=== PATIENT | male | born 1980 | race Caucasian/White ===

== ENCOUNTER 2016-09-06 21:54 | Observation (INO) ==
[2016-09-06] MEDS ORDERED: Ibuprofen 600 MG TABLET PO ONE (23:22)
[2016-09-06 23:24] LABS: Bilirubin,Urine Negative (Negative); Blood,Urine Negative (Negative); Clarity,Urine Clear (Clear); Color,Urine Yellow (Yellow); Glucose,Urine (UA) Normal (Normal); Ketones,Urine Negative (Negative); Leukocyte Esterase,Urine Negative (Negative); Nitrite,Urine Negative (Negative); Protein,Urine Negative (Neg-Trace); Specific Gravity,Urine 1.012 (1.010-1.025); Urobilinogen,Urine Normal (Normal)
[2016-09-06 23:31] LABS: Amphetamine Screen,Urine Negative ng/mL (Cutoff=1000); Barbiturate Screen,Urine Negative ng/mL (Cutoff=200); Benzodiazepines Screen,Urine Negative ng/mL (Cutoff=200); Cannabinoid Screen,Urine Negative ng/mL (Cutoff = 50); Cocaine Screen,Urine Negative ng/mL (Cutoff= 300); Opiate Screen,Urine Negative ng/mL (Cutoff=300); Phencyclidine Screen,Urine Negative ng/mL (Cutoff=25)
[2016-09-07 00:22] LABS: Basophils % 0.4 %; Hemoglobin 16.1 g/dL (12.9-16.9); Immature Granulocytes % 0.3 % (0-4); Lymphocytes # 2.9 K/mcL (0.6-4.6); Lymphocytes % 37.1 %; Mean Corpuscular HGB Conc 34.3 g/dL (31.6-35.5); Mean Corpuscular Hemoglobin 31.2 pg (28.0-33.3); Mean Corpuscular Volume 91.1 fL (83.0-100.0); Mean Platelet Volume 11.8 fL (9.4-12.4); Monocytes # 0.5 K/mcL (0.0-1.3); Monocytes % 6.9 %; Neutrophils # 4.4 K/mcL (1.6-8.9); Platelet Count 185 K/mcL (140-400); Red Blood Count 5.16 M/mcL (4.19-5.50); Red Cell Distribution Width 12.2 % (11.5-14.5); Segmented Neutrophils % 55.3 %
[2016-09-07 00:38] LABS: Alanine Aminotransferase 23 Units/L (0-55); Albumin 4.1 g/dL (3.5-5.0); Albumin/Globulin Ratio 1.2 (1.1-2.2); Alkaline Phosphatase 97 Units/L (38-126); Aspartate Amino Transferase 19 Units/L (5-34); BUN/Creatinine Ratio 14 (6-26); Bilirubin,Direct 0.1 mg/dL (0.0-0.5); Bilirubin,Indirect 0.3 mg/dL (0.0-1.2); Bilirubin,Total 0.4 mg/dL (0.2-1.2); Blood Urea Nitrogen 11 mg/dL (8-26); Calcium 10.1 mg/dL (8.6-10.8); Carbon Dioxide 26 mEq/L (19-29); Chloride 108 mEq/L (98-109); Globulin 3.3 g/dL (2.4-3.5); Glucose 87 mg/dL (70-99); Osmolality,Calculated 297 (280-300); Potassium 3.5 mEq/L (3.5-4.5); Sodium 144 mEq/L (136-145); Total Protein 7.4 g/dL (6.0-8.3); eGFR For African Americans > 60 (> 60); eGFR For Non-African Americans > 60 (> 60)
[2016-09-07 01:00] LABS: Acetaminophen < 1.0 mcg/mL (10-30); Ethanol < 10 mg/dL (0-10); Salicylate < 5.0 mg/dL (15-30)
--- NOTE | 2016-09-07 02:14 | Emergency Department Note ---
Overdose - Lab Data Lab results reviewed: Yes I reviewed the patient's lab results. Result diagrams: 09/07/16 00:15 09/07/16 00:15 Lab Results 09/06/16 09/06/16 09/07/16 Range/Units 22:08 22:08 00:15 WBC 7.9 (4.3-11.1) K/mcL RBC 5.16 (4.19-5.50) M/mcL Hgb 16.1 (12.9-16.9) g/dL Hct 47.0 (37.5-50.1) % MCV 91.1 (83.0-100.0) fL MCH 31.2 (28.0-33.3) pg MCHC 34.3 (31.6-35.5) g/dL RDW 12.2 (11.5-14.5) % Plt Count 185 (140-400) K/mcL MPV 11.8 (9.4-12.4) fL Immature Gran % 0.3 (0-4) % Seg Neutrophils % 55.3 % Lymphocytes % 37.1 % Monocytes % 6.9 % Eosinophils % 0.0 % Basophils % 0.4 % Neutrophils # 4.4 (1.6-8.9) K/mcL Lymphocytes # 2.9 (0.6-4.6) K/mcL Monocytes # 0.5 (0.0-1.3) K/mcL Eosinophils # 0.0 (0.0-0.6) K/mcL Basophils # 0.0 (0.0-0.2) K/mcL Sodium (136-145) mEq/L Potassium (3.5-4.5) mEq/L Chloride (98-109) mEq/L Carbon Dioxide (19-29) mEq/L BUN (8-26) mg/dL Creatinine (0.72-1.25) mg/dL Est GFR ( Amer) (> 60) Est GFR (Non-Af Amer) (> 60) BUN/Creatinine Ratio (6-26) Glucose (70-99) mg/dL Calculated Osmolality (280-300) Calcium (8.6-10.8) mg/dL Total Bilirubin (0.2-1.2) mg/dL Direct Bilirubin (0.0-0.5) mg/dL Indirect Bilirubin (0.0-1.2) mg/dL AST (5-34) Units/L ALT (0-55) Units/L Alkaline Phosphatase (38-126) Units/L Serum Total Protein (6.0-8.3) g/dL Albumin (3.5-5.0) g/dL Globulin (2.4-3.5) g/dL Albumin/Globulin Ratio (1.1-2.2) Urine Color Yellow (Yellow) Urine Clarity Clear (Clear) Urine pH 7.0 (5.0-8.0) pH Units Ur Specific [place] 1.012 (1.010-1.025) Urine Protein Negative (Neg-Trace) mg/dL Urine Glucose (UA) Normal (Normal) mg/dL Urine Ketones Negative (Negative) mg/dL Urine Blood Negative (Negative) Urine Nitrite Negative (Negative) Urine Bilirubin Negative (Negative) Urine Urobilinogen Normal (Normal) mg/dL Ur Leukocyte Esterase Negative (Negative) Salicylates (15-30) mg/dL Urine Opiates Screen Negative (Qjhfna=989) ng/mL Acetaminophen (10-30) mcg/mL Ur Barbiturates Screen Negative (Sqrmso=809) ng/mL Ur Phencyclidine Scrn Negative (Cutoff=25) ng/mL Ur Amphetamines Screen Negative (Daylmb=1620) ng/mL U Benzodiazepines Scrn Negative (Cngnsc=627) ng/mL Urine Cocaine Screen Negative (Cutoff= 300) ng/mL U Marijuana (THC) Screen Negative (Cutoff = 50) ng/mL Ethyl Alcohol (0-10) mg/dL 09/07/16 Range/Units 00:15 WBC (4.3-11.1) K/mcL RBC (4.19-5.50) M/mcL Hgb (12.9-16.9) g/dL Hct (37.5-50.1) % MCV (83.0-100.0) fL MCH (28.0-33.3) pg MCHC (31.6-35.5) g/dL RDW (11.5-14.5) % Plt Count (140-400) K/mcL MPV (9.4-12.4) fL Immature Gran % (0-4) % Seg Neutrophils % % Lymphocytes % % Monocytes % % Eosinophils % % Basophils % % Neutrophils # (1.6-8.9) K/mcL Lymphocytes # (0.6-4.6) K/mcL Monocytes # (0.0-1.3) K/mcL Eosinophils # (0.0-0.6) K/mcL Basophils # (0.0-0.2) K/mcL Sodium 144 (136-145) mEq/L Potassium 3.5 (3.5-4.5) mEq/L Chloride 108 (98-109) mEq/L Carbon Dioxide 26 (19-29) mEq/L BUN 11 (8-26) mg/dL Creatinine 0.81 (0.72-1.25) mg/dL Est GFR ( Amer) > 60 (> 60) Est GFR (Non-Af Amer) > 60 (> 60) BUN/Creatinine Ratio 14 (6-26) Glucose 87 (70-99) mg/dL Calculated Osmolality 297 (280-300) Calcium 10.1 (8.6-10.8) mg/dL Total Bilirubin 0.4 (0.2-1.2) mg/dL Direct Bilirubin 0.1 (0.0-0.5) mg/dL Indirect Bilirubin 0.3 (0.0-1.2) mg/dL AST 19 (5-34) Units/L ALT 23 (0-55) Units/L Alkaline Phosphatase 97 (38-126) Units/L Serum Total Protein 7.4 (6.0-8.3) g/dL Albumin 4.1 (3.5-5.0) g/dL Globulin 3.3 (2.4-3.5) g/dL Albumin/Globulin Ratio 1.2 (1.1-2.2) Urine Color (Yellow) Urine Clarity (Clear) Urine pH (5.0-8.0) pH Units Ur Specific [place] (1.010-1.025) Urine Protein (Neg-Trace) mg/dL Urine Glucose (UA) (Normal) mg/dL Urine Ketones (Negative) mg/dL Urine Blood (Negative) Urine Nitrite (Negative) Urine Bilirubin (Negative) Urine Urobilinogen (Normal) mg/dL Ur Leukocyte Esterase (Negative) Salicylates < 5.0 L (15-30) mg/dL Urine Opiates Screen (Ezabbl=942) ng/mL Acetaminophen < 1.0 L (10-30) mcg/mL Ur Barbiturates Screen (Vxbkyt=838) ng/mL Ur Phencyclidine Scrn (Cutoff=25) ng/mL Ur Amphetamines Screen (Vgtnvy=4201) ng/mL U Benzodiazepines Scrn (Cdupmq=098) ng/mL Urine Cocaine Screen (Cutoff= 300) ng/mL U Marijuana (THC) Screen (Cutoff = 50) ng/mL Ethyl Alcohol < 10 (0-10) mg/dL Overdose HPI - General Chief Complaint: ED Overdose Stated Complaint: Overdose Time Seen by Provider: 09/06/16 23:17 Source: EMS Mode of arrival: private vehicle Limitations: no limitations Nursing Notes Reviewed: Yes Vital Signs Reviewed: Yes - History of Present Illness HPI Narrative: Patient presents to the emergency department after an overdose on #30 lisinopril /hydrochlorothiazide 20/25mg. Patient denies any specific suicidal ideation, however states "I just cannot take it on a more." He denies any current chest pain, shortness of breath, dizziness or lightheadedness. He denies any recent illnesses, fever, chills, nausea or vomiting. Patient denies any chest pain, shortness of breath, dizziness, lightheadedness. Patient states that he took the medication because he was "tired of it all." Patient stated this in reference to his chronic back pain. Pt Subjective Complaint: intentional overdose Onset (ago): Just D[employer] WORK[employer] Time of Ingestion: 22:00 Intent: unknown How Overdose Was Discovered: called 911 Associated symptoms: depression Treatments Prior to Arrival: none - Related Data Home Medications Medication Instructions Recorded Confirmed Lisinopril/Hydrochlorothiazide 20 - 25 mg PO DAILY 11/23/14 03/07/16 [Zestoretic 20-25 mg Tablet] Oxycodone HCl/Acetaminophen 1 tab PO Q6H PRN 03/07/16 03/07/16 [Percocet 7.5-325 mg Tablet] Previous Rx's Medication Instructions Recorded Gabapentin [Neurontin] 200 mg PO TID #15 capsule 03/07/16 Methocarbamol [Robaxin-750] 750 mg PO TID #21 tablet 03/07/16 Allergies Allergy/AdvReac Type Severity Reaction Status Date / Time Iodinated Contrast- Oral and Allergy Anaphylaxis Verified 09/11/15 20:47 IV Dye [Iodinated Contrast Media - IV Dye] tramadol [From Ultram] Allergy Seizure Verified 09/11/15 20:47 All systems ED: reviewed and negative except as stated. Constitutional: Denies: fever, chills Cardiovascular: Denies: chest pain, palpitations Respiratory: Denies: cough, dyspnea Gastrointestinal: Denies: abdominal pain, nausea, vomiting Musculoskeletal: Denies: back pain, neck pain Integumentary: Denies: rash, abrasion, lesions Neurological: Denies: headache Psychiatric: Reports: depression, suicidal thoughts. Denies: anxiety, homicidal thoughts Endocrine: Denies: fatigue Past Medical History - Past Medical History Attestation: Yes The following information was validated with the patient. Source: patient, nursing notes reviewed Medical history: Reports: hypertension, kidney stones, other Surgical history: Reports: herniorrhaphy Psychiatric history: Reports: anxiety, previous psychiatric hospitalization - Social History Smoking Status: Current every day smoker Smokeless Tobacco Status: No Alcohol use: Reports: none Drug use: Reports: none, prescription drug abuse Physical Exam - General Limitations: no limitations General appearance: alert, in no apparent distress - Head Head exam: atraumatic, normocephalic - Eye Eye exam: Present: normal appearance, PERRL - ENT ENT exam: normal exam, normal oropharynx, mucous membranes moist - Neck Neck exam: Present: normal inspection, full ROM, trachea midline - Chest Chest inspection: Present: normal inspection, symmetric chest wall rise - Respiratory Respiratory exam: Present: normal lung sounds bilaterally. Absent: respiratory distress - Cardiovascular Cardiovascular exam: Present: regular rate, normal rhythm, normal heart sounds - Abdominal Exam Abdominal exam: Present: soft, Non-Tender, normal bowel sounds - Extremities Exam Extremities exam: Present: normal inspection, full ROM. Absent: tenderness, pedal edema - Expanded Lower Extremity Exam Gait: observed and normal - Back Exam Back exam: Present: normal inspection, full ROM. Absent: tenderness - Neurological Exam Neurological exam: Present: alert, oriented X3 - Psychiatric Psychiatric exam: Present: flat affect - Skin Skin exam: Present: warm, dry, intact, normal color Course Course Narrative: I spoke with the hospitalist, Dr. Ortiz. Patient will be admitted for observation and possible psychiatric 1A evaluation. Current vitals stable. No hypotension. Vital Signs Temperature 98.6 F 09/06/16 21:56 Pulse Rate 100 09/06/16 21:56 Respiratory Rate 20 09/06/16 21:56 Blood Pressure 156/118 09/06/16 21:56 O2 Sat by Pulse Oximetry 96 09/06/16 21:56 Temperature 98.6 F 09/06/16 21:56 Pulse Rate 73 09/07/16 01:32 Respiratory Rate 16 09/07/16 01:32 Blood Pressure 117/84 09/07/16 01:32 O2 Sat by Pulse Oximetry 93 09/07/16 01:32 Oxygen Delivery Oxygen Delivery Room Air Disposition Clinical Impression: Drug overdose Disposition: Admitted As Inpatient Condition: Fair Instructions: Adult Overdose (ED) Referrals: Yokasta Negro CNP [Primary Care Provider] - Forms: ED Satisfaction Letter Time of Disposition: 02:24
[2016-09-07] MEDS ORDERED: 0.9 % Sodium Chloride 1,000 ML IVC ONE (02:20)
[2016-09-07] MEDS ORDERED: Acetaminophen 325 MG TABLET PO PRN (02:44)
[2016-09-07] MEDS ORDERED: Naloxone 0.4 MG/ML INJ IVP PRN (02:44)
[2016-09-07] MEDS ORDERED: Ondansetron 4 MG/2 ML VIAL IVP PRN (02:44)
[2016-09-07] MEDS ORDERED: 0.9 % Sodium Chloride 1,000 ML IVC SCH (02:45)
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
--- NOTE | 2016-09-07 03:18 | Emergency Department Note ---
Attestation Statement - Attestation Attestation: I, Donald Patel MD, personally evaluated this patient and discussed their management with the midlevel provicer, PAC/[employer]ENER. I reviewed the midlevel provider 's note and agree with the documented findings, medical decision making, and plan of care. 35-year-old male presents to the emergency department with an intentional overdose of his blood pressure medication. Patient states he took an entire full bottle. He admits he was trying to hurt himself. On examination patient is a well-developed obese male in no acute distress. He is alert and oriented 3. There is no cyanosis or diaphoresis. Breath sounds are clear and equal bilaterally. Heart regular rate and rhythm. Abdomen is soft and nontender with normal bowel sounds. Labs reviewed. No acute changes on EKG. The hospitalist, Dr. Ortiz, was consulted and accepted admission of the patient.
[2016-09-07] MEDS ORDERED: Famotidine 20 MG/2 ML VIAL IVP SCH (06:00)
[2016-09-07] MEDS ORDERED: *HR* Heparin 5,000 UNIT/ML VIAL SQ SCH (06:00)
[2016-09-07] MEDS ORDERED: Nicotine 21 MG PATCH.TD24 TD SCH (09:00)
[2016-09-07 10:28] VITALS: BP 117/78
--- NOTE | 2016-09-07 12:04 | Consult Note ---
Date of Encounter: 09/07/16 Time of Encounter: 12:05 Assessment & Recommendation (1) MDD (major depressive disorder), recurrent severe, without psychosis Current visit: Yes Status: Acute Assessment & Recommendation: Patient is seen and interviewed after reviewing the symptoms diagnosis and treatment plan and explaining the risks benefits and side effects of treatment and consequences of no treatment and getting an informed consent from the patient antony mutually decided to transfer the patient to psychiatric unit as patient has attempted suicide and continued to verbalize hopeless helpless feelings and suicidal ideations. We will initiate patient on Cymbalta 60 mg daily to help with his depression and chronic pain. We will continue patient's medications for his medical problems including lisinopril and Percocet for his hypertension and chronic back pain. Thank you for the consult. Please feel free to call me there are any further questions. History of Present Illness Patient: known to practice within the last 3 years Requesting Physician: Macey Justin MD Reason for consult: To assess patient for suicidality History of present illness: Mr. Epps is a 35 year old male Was admitted on the [facility] floor after he overdosed on lisinopril in an attempt to kill himself. Patient is known to us from prior hospitalization. He is noted to have history of depression. Patient reported that he been off his medication and is not currently following up with any psychiatrist. He reported that he has been noticing a relapse of depression with low mood and anhedonia hopeless helpless feelings low energy levels erratic sleep and appetite. Patient reported that on the day of admission he had an argument with his after which he felt extremely frustrated and helpless and overdosed on his medication in an attempt to kill himself. Patient reported that his ongoing stressors included being unemployed due to his back pain and having financial issues and problems. He also reported that him and his together have 9 children he has 4 biological children and 5 stepchildren who resides with them which also contributions to the stress. CC: Macey Justin MD Past Med Surg Social Fam HX - Past Medical History Medical history: hypertension, kidney stones, other (Chronic back pain) - Past Psychiatric History Psychiatric history: Reports: depression, previous psychiatric hospitalization Past psychiatric history details: Patient has prior psychiatric hospitalization at the [facility] April 2015. He has attempted suicide in the past. He is currently not receiving any outpatient psychiatric treatment. Family psychiatric history: No Family History of Suicide: None - Past Surgical History Surgical History: herniorrhaphy - Social History Smoking Status: Current every day smoker Smokeless Tobacco Status: No Alcohol use: none Drug use: none, prescription drug abuse Occupational status: unemployed Current living situation: Home, With Family Activity Level: Independent ambulation Recent Out of Country Travel Within the Last 8 Weeks: No Exposure or Possible Exposure to Illness During Travel: No Additional social history: Patient is from [place]. Reported good childhood. Denies any physical or sexual abuse. He graduated high school. Patient was working up until last year when he hurt his back and has been unemployed since then. He has applied for disability and is awaiting it. He has been for 8 years and has 4 biological children. His has 5 children from a previous relationship. The children age group ranges from 3 years for 21 years. They reside with them. He denies any legal issues. - Family History Mother Living Status: Hx Family Cardiac Disorders: Yes (hypertension) Hx Family Respiratory Disorders: Yes (COPD) Hx Family Cancer: No Hx Family GI Disorders: No Hx Family Genitourinary Disorders: No Hx Family Endocrine Disorder: Yes (DM) Hx Family Musculoskeletal Disorders: No Hx Family Neuromuscular Disorders: No Hx Family Neurologic Disorders: No Hx Family HEENT Disorders: No Hx Family Autoimmune Disorders: No Hx Family Reproductive Disorders: No Hx Family Psychosocial Disorders: No Hx Family Medical Disorders: No Medications & Allergies Lisinopril/Hydrochlorothiazide [Zestoretic 20-25 mg Tablet] 1 tab PO DAILY 11/23 [History] Oxycodone HCl/Acetaminophen [Percocet 7.5-325 mg Tablet] 1 tab PO Q6H PRN [History] Atenolol [Tenormin] 50 mg PO DAILY 09/07/16 [History] clonazePAM [Klonopin] 0.5 mg PO BID 09/07/16 [History] Allergies Iodinated Contrast- Oral and IV Dye [Iodinated Contrast Media - IV Dye] Allergy (Verified 09/11/15 20:47) Anaphylaxis tramadol [From Ultram] Allergy (Verified 09/11/15 20:47) Seizure Review of Systems Psychiatric: Reports: depression, suicidal ideation, anhedonia, hopelessness Mental Status Exam Patient orientation: Yes Person, Yes Time, Yes Place Level of alertness: Alert Patient appearance: Appropriate, Well Groomed Behavior: anxious, withdrawn Psychomotor activity: Slowed Eye contact: Maintains Eye Contact Mood description: Depressed, Anxious Affect description: congruent with mood, constricted, dysphoric Speech pattern: Normal rate, Normal rhythm, Normal tone Speech volume: Normal Thought process: Intact Thought content: Yes Suicidal ideation, No Homicidal ideation, No Overt delusions Perceptual disturbances: No Auditory hallucinations, No Visual hallucinations Attention span: Capable of Focused Attention Memory description: Grossly Intact Patient reliability: Reliable Historian Intelligence estimate: Average Judgment: Limited Insight: Minimal Results - Vital Signs Vital signs: Temp Pulse Resp BP Pulse Ox 97.6 F 75 14 117/78 93 09/07/16 10:27 09/07/16 10:27 09/07/16 10:27 09/07/16 10:27 09/07/16 10:27 - Labs Labs: Laboratory Last Values WBC 7.9 K/mcL (4.3-11.1) 09/07/16 00:15 RBC 5.16 M/mcL (4.19-5.50) 09/07/16 00:15 Hgb 16.1 g/dL (12.9-16.9) 09/07/16 00:15 Hct 47.0 % (37.5-50.1) 09/07/16 00:15 MCV 91.1 fL (83.0-100.0) 09/07/16 00:15 MCH 31.2 pg (28.0-33.3) 09/07/16 00:15 MCHC 34.3 g/dL (31.6-35.5) 09/07/16 00:15 RDW 12.2 % (11.5-14.5) 09/07/16 00:15 Plt Count 185 K/mcL (140-400) 09/07/16 00:15 MPV 11.8 fL (9.4-12.4) 09/07/16 00:15 Immature Gran % 0.3 % (0-4) 09/07/16 00:15 Seg Neutrophils % 55.3 % 09/07/16 00:15 Lymphocytes % 37.1 % 09/07/16 00:15 Monocytes % 6.9 % 09/07/16 00:15 Eosinophils % 0.0 % 09/07/16 00:15 Basophils % 0.4 % 09/07/16 00:15 Neutrophils # 4.4 K/mcL (1.6-8.9) 09/07/16 00:15 Lymphocytes # 2.9 K/mcL (0.6-4.6) 09/07/16 00:15 Monocytes # 0.5 K/mcL (0.0-1.3) 09/07/16 00:15 Eosinophils # 0.0 K/mcL (0.0-0.6) 09/07/16 00:15 Basophils # 0.0 K/mcL (0.0-0.2) 09/07/16 00:15 Sodium 144 mEq/L (136-145) 09/07/16 00:15 Potassium 3.5 mEq/L (3.5-4.5) 09/07/16 00:15 Chloride 108 mEq/L (98-109) 09/07/16 00:15 Carbon Dioxide 26 mEq/L (19-29) 09/07/16 00:15 BUN 11 mg/dL (8-26) 09/07/16 00:15 Creatinine 0.81 mg/dL (0.72-1.25) 09/07/16 00:15 Est GFR ( Amer) > 60 (> 60) 09/07/16 00:15 Est GFR (Non-Af Amer) > 60 (> 60) 09/07/16 00:15 BUN/Creatinine Ratio 14 (6-26) 09/07/16 00:15 Glucose 87 mg/dL (70-99) 09/07/16 00:15 POC Glucose 91 (58-89) H 09/07/16 03:55 Calculated Osmolality 297 (280-300) 09/07/16 00:15 Calcium 10.1 mg/dL (8.6-10.8) 09/07/16 00:15 Total Bilirubin 0.4 mg/dL (0.2-1.2) 09/07/16 00:15 Direct Bilirubin 0.1 mg/dL (0.0-0.5) 09/07/16 00:15 Indirect Bilirubin 0.3 mg/dL (0.0-1.2) 09/07/16 00:15 AST 19 Units/L (5-34) 09/07/16 00:15 ALT 23 Units/L (0-55) 09/07/16 00:15 Alkaline Phosphatase 97 Units/L (38-126) 09/07/16 00:15 Serum Total Protein 7.4 g/dL (6.0-8.3) 09/07/16 00:15 Albumin 4.1 g/dL (3.5-5.0) 09/07/16 00:15 Globulin 3.3 g/dL (2.4-3.5) 09/07/16 00:15 Albumin/Globulin Ratio 1.2 (1.1-2.2) 09/07/16 00:15 Urine Color Yellow (Yellow) 09/06/16 22:08 Urine Clarity Clear (Clear) 09/06/16 22:08 Urine pH 7.0 pH Units (5.0-8.0) 09/06/16 22:08 Ur Specific [place] 1.012 (1.010-1.025) 09/06/16 22:08 Urine Protein Negative mg/dL (Neg-Trace) 09/06/16 22:08 Urine Glucose (UA) Normal mg/dL (Normal) 09/06/16 22:08 Urine Ketones Negative mg/dL (Negative) 09/06/16 22:08 Urine Blood Negative (Negative) 09/06/16 22:08 Urine Nitrite Negative (Negative) 09/06/16 22:08 Urine Bilirubin Negative (Negative) 09/06/16 22:08 Urine Urobilinogen Normal mg/dL (Normal) 09/06/16 22:08 Ur Leukocyte Esterase Negative (Negative) 09/06/16 22:08 Salicylates < 5.0 mg/dL (15-30) L 09/07/16 00:15 Urine Opiates Screen Negative ng/mL (Kavuql=123) 09/06/16 22:08 Acetaminophen < 1.0 mcg/mL (10-30) L 09/07/16 00:15 Ur Barbiturates Screen Negative ng/mL (Arkyjt=261) 09/06/16 22:08 Ur Phencyclidine Scrn Negative ng/mL (Cutoff=25) 09/06/16 22:08 Ur Amphetamines Screen Negative ng/mL (Cqatei=3047) 09/06/16 22:08 U Benzodiazepines Scrn Negative ng/mL (Mlmvfl=500) 09/06/16 22:08 Urine Cocaine Screen Negative ng/mL (Cutoff= 300) 09/06/16 22:08 U Marijuana (THC) Screen Negative ng/mL (Cutoff = 50) 09/06/16 22:08 Ethyl Alcohol < 10 mg/dL (0-10) 09/07/16 00:15 Consult Discharge Plan - Plan Referrals: Yokasta Negro CNP [Primary Care Provider] -
[2016-09-07] MEDS ORDERED: *HR* HYDROcodone/Acet 5/325 mg TABLET PO PRN (12:06)
--- NOTE | 2016-09-07 15:05 | Discharge Summary ---
Date of Encounter: 09/07/16 Time of Encounter: 15:01 - Discharge Diagnosis (1) Depression Priority: Secondary Status: Acute Qualifiers: Depression Type: major depressive disorder Major depression recurrence: recurrent Active/Remission status: currently active Major depression episode severity: moderate Qualified Code(s): F33.1 - Major depressive disorder, recurrent, moderate (2) Opiate dependence Priority: Secondary Status: Acute Qualifiers: Substance use status: uncomplicated Qualified Code(s): F11.20 - Opioid dependence, uncomplicated (3) Obesity Priority: Secondary Status: Chronic Qualifiers: Obesity type: unspecified obesity type Obesity severity: morbid Qualified Code(s): E66.01 - Morbid (severe) obesity due to excess calories (4) Drug overdose, intentional Priority: Primary Status: Acute Qualifiers: Encounter type: initial encounter Qualified Code(s): T50.902A - Poisoning by unspecified drugs, medicaments and biological substances, intentional self- harm, initial encounter (5) Essential hypertension Priority: Secondary Status: Chronic - Discharge Medications Home Medications: Lisinopril/Hydrochlorothiazide [Zestoretic 20-25 mg Tablet] 1 tab PO DAILY 11/23 [History] Oxycodone HCl/Acetaminophen [Percocet 7.5-325 mg Tablet] 1 tab PO Q6H PRN [History] Acetaminophen [Tylenol] 650 mg PO Q6HR PRN #0 tablet 09/07/16 [Rx] Atenolol [Tenormin] 50 mg PO DAILY 09/07/16 [History] HYDROcodone/Acet 5/325 mg [[place] 5-325 mg] 1 tab PO Q6HR PRN #0 tablet 09/07/16 [Rx] Heparin 5,000 unit SQ Q12HCO vial 09/07/16 [Rx] Naloxone [Narcan] 0.4 mg IVP Q2MIN PRN #0 inj 09/07/16 [Rx] Nicotine Patch [Nicoderm] 21 mg TD DAILY patch.td24 09/07/16 [Rx] clonazePAM [Klonopin] 0.5 mg PO BID 09/07/16 [History] Allergies/Adverse Reactions: Allergies Iodinated Contrast- Oral and IV Dye [Iodinated Contrast Media - IV Dye] Allergy (Verified 09/11/15 20:47) Anaphylaxis tramadol [From Ultram] Allergy (Verified 09/11/15 20:47) Seizure Date of admission: 09/07/16 02:40 Primary care physician: Yokasta Negro CNP Consults: 09/07/16 02:46 Consult to Psychiatry [CONS] Routine Consulting Provider: Psychiatry Marisel Reason for Consult: Intentional overdose Call Completed: Yes - Patient Status Disposition: Transfer Psychiatric Hosp Condition: Good Overall status at discharge: patient is back to baseline - Discharge Instructions Follow Up With: Yokasta Negro CNP [Primary Care Provider] - - Diet and Activity Activity: resume usual activities as tolerated Diet: advance to your usual diet Hospital course: Mr. Epps is a 35 year old male came in with intentional drug overdose after marital or given. He has history of depression and apparently has not been taking his medication. Surprisingly he took bunch of lisinopril tablet but his blood pressure is pretty stable and did not drop at all. There is concern if he actually took those pills or not. In any case medically he is fit. His lab work is okay and his physical examinations okay 2. Psych has evaluated him and decided to transfer him to psych unit. - Time Spent with Patient Total time spent providing and/or coordinating discharge services: - Constitutional Vitals: Temp Pulse Resp BP Pulse Ox 97.6 F 75 14 117/78 93 09/07/16 10:27 09/07/16 10:27 09/07/16 10:27 09/07/16 10:27 09/07/16 10:27 General appearance: Present: A&O X 3, no acute distress, obese, answers questions appropriately - Head Head exam: Present: atraumatic, normocephalic - Eye Eye exam: Present: PERRL, conjuntiva pink, sclera anicteric Pupils: Present: PERRL - Neck Neck exam general surgery: Present: supple, trachea midline. Absent: lymphadenopathy - Respiratory Respiratory exam: Present: CTAB. Absent: accessory muscle use, rales, rhonchi, wheezes - Cardiovascular Cardiovascular exam: Present: RRR, +S1, +S2. Absent: diastolic murmur, gallop, rubs, systolic murmur - GI/Abdominal GI/Abdominal exam: Present: normal bowel sounds, soft, no peritoneal signs. Absent: distended, tenderness - Extremities Exam Extremities exam: Present: warm, radial pulses palpable and symetrical. Absent : calf tenderness, cyanotic, pedal edema - Neurological Exam Neurological exam: Present: CN II-XII intact, oriented X3, no focal deficits. Absent: pronater drift, facial droop, speech deficit - Skin Skin exam: Present: dry, intact
--- NOTE | 2016-09-08 12:15 | Electrocardiograph Report ---
[address] [place] [address] Test Date: 2016-09-07 Pat Name: Jose Epps Department: 103 Room: 3B54 Gender: M [employer] Assembler: JOEL : 1980 Requested By: Luciano De Anda Order Number: [id number] Reading MD: Dejah Deluca Measurements Intervals [place] Rate: 83 P: 29 HI: 159 QRS: 1 QRSD: 110 T: 47 QT: 391 QTc: 430 Interpretive Statements SINUS RHYTHM NONSPECIFIC T-WAVE ABNORMALITY Electronically Signed On 09-08-2016 12:13:44 EDT by Dejah Deluca
== END 2016-09-07 15:45 ==
LOC: EMEROO 21:54 → 3BNU 21:54 → SUATTDRO 09-07 02:40 → 3BNU 09-07 02:58
PROVIDERS: ADMIT Family Medicine; ATTEND Psychiatry & Neurology Psychiatry

== ENCOUNTER 2016-09-07 15:33 | Inpatient (IN) ==
[2016-09-07] MEDS ORDERED: Haloperidol Lactate 5 MG/ML VIAL IM PRN (16:34)
[2016-09-07] MEDS ORDERED: MOM Conc 10 ML UD.LIQ PO PRN (16:34)
[2016-09-07] MEDS ORDERED: Mag Hydrox/Al Hydrox/Simeth 30 ML UDC PO PRN (16:34)
[2016-09-07] MEDS ORDERED: Ibuprofen 400 MG TABLET PO PRN (16:34)
[2016-09-07] MEDS ORDERED: *HR* LORazepam 1 MG TABLET PO PRN (16:34)
[2016-09-07] MEDS ORDERED: *HR* LORazepam 2 MG/ML VIAL IM PRN (16:34)
[2016-09-07] MEDS ORDERED: Nicotine 21 MG PATCH.TD24 TD SCH (17:15)
[2016-09-07] MEDS: *HR* OxyCODONE/APAP 7.5/325 TABLET PO PRN (17:50)
[2016-09-07] MEDS: traZODone 50 MG TABLET PO PRN (21:30)
[2016-09-07] MEDS: clonazePAM 0.5 MG TABLET PO SCH (21:31)
[2016-09-08] MEDS: *HR* OxyCODONE/APAP 7.5/325 TABLET PO PRN ×4 (00:03→21:49)
[2016-09-08] MEDS: Nicotine 21 MG PATCH.TD24 TD SCH ×2 (08:52→09:38)
[2016-09-08] MEDS: clonazePAM 0.5 MG TABLET PO SCH ×2 (09:36→20:51)
--- NOTE | 2016-09-08 10:36 | Psychiatry History & Physical ---
Date of Encounter: 09/08/16 Time of Encounter: 10:40 History of Present Illness Patient Stated Chief Complaint: Suicide attempt Medicare Admission Attestation: For traditional Medicare patients the provided hospital inpatient services are reasonable and necessary and in the case of services not specified as inpatient -only under 42 CFR 419.22 (n), that they are appropriately provided as inpatient services in accordance 42 CFR 412.3. For Critical Access Hospital the patient may reasonably be expected to be discharged or transferred to a hospital within 96 hours after admission to the Critical Access Hospital. Admitted From: Direct Admit Plans for Post Hospital Care: Home History of Present Illness: Mr. Epps is a 35 year old male who was initially admitted on the [facility] floor after suicide attempt. Patient to handful of lisinopril in order to end his life. Patient was seen by me as a psychiatric consult yesterday (please refer to the attached psych consult for details). Briefly patient reported that he has been struggling from depression off and on for the last few years. He reported that he has been noticing a relapse of his depression for the last few weeks. He has been off all his antidepressant medications. He reported that he has been noticing low mood and anhedonia hopeless helpless feelings lower energy levels recurrent suicidal thoughts and ideations. Patient reported that he had an argument with his on the day of admission after which he felt extremely frustrated and hopeless and decided to overdose on pills in order to kill himself. He did endorse a lot of stressors which included being unemployed due to his back pain having financial issues and marital problems. He is also awaiting disability. He also reported that him and his together have 9 children which contributes significantly to the level of stress. Patient was verbalizing hopeless helpless feeling and suicidal ideations after which it was decided to transfer him to [address] psychiatric unit for further stabilization Past Med Surg Social Fam HX - Past Medical History Medical history: hypertension, kidney stones, other - Past Surgical History Surgical History: herniorrhaphy - Social History Smoking Status: Current every day smoker Smokeless Tobacco Status: No Alcohol use: none Drug use: none, prescription drug abuse Occupational status: unemployed Current living situation: Home, With Family Activity Level: Independent ambulation Recent Out of Country Travel Within the Last 8 Weeks: No Exposure or Possible Exposure to Illness During Travel: No Additional social history: Patient is from [place]. Reported good childhood. Denied any physical or sexual abuse. He graduated high school. Patient was working up until last year when he started to notice severe back pain and has been unemployed since then. He is applied for disability and is awaiting it. He has been for 8 years and has 4 biological children and resides with them along with 5 stepchildren. He denies any legal issues - Family History Mother Adopted: [place]: Abeba Epps Age: 54 Family Member Ethnicity: Non- Living Status: Age at : 54 Cause of : unknown Hx Family Cardiac Disorders: Yes (her parents of heart attacks) Hx Family Respiratory Disorders: Yes (mother had COPD and sleep apnea) Hx Family Cancer: No Hx Family GI Disorders: No Hx Family Genitourinary Disorders: No Hx Family Endocrine Disorder: Yes (mother had Diabetes) Hx Family Musculoskeletal Disorders: No Hx Family Neuromuscular Disorders: No Hx Family Neurologic Disorders: No Hx Family HEENT Disorders: No Hx Family Autoimmune Disorders: No Hx Family Reproductive Disorders: No Hx Family Psychosocial Disorders: Yes (mother had anxiety) Hx Family Medical Disorders: No Medications & Allergies Lisinopril/Hydrochlorothiazide [Zestoretic 20-25 mg Tablet] 1 tab PO DAILY 11/23 [History] Oxycodone HCl/Acetaminophen [Percocet 7.5-325 mg Tablet] 1 tab PO Q6H PRN [History] Acetaminophen [Tylenol] 650 mg PO Q6HR PRN #0 tablet 09/07/16 [Rx] Atenolol [Tenormin] 50 mg PO DAILY 09/07/16 [History] HYDROcodone/Acet 5/325 mg [[place] 5-325 mg] 1 tab PO Q6HR PRN #0 tablet 09/07/16 [Rx] Heparin 5,000 unit SQ Q12HCO vial 09/07/16 [Rx] Naloxone [Narcan] 0.4 mg IVP Q2MIN PRN #0 inj 09/07/16 [Rx] Nicotine Patch [Nicoderm] 21 mg TD DAILY patch.td24 09/07/16 [Rx] clonazePAM [Klonopin] 0.5 mg PO BID 09/07/16 [History] Allergies Iodinated Contrast- Oral and IV Dye [Iodinated Contrast Media - IV Dye] Allergy (Verified 09/11/15 20:47) Anaphylaxis tramadol [From Ultram] Allergy (Verified 09/11/15 20:47) Seizure Review of Systems Psychiatric: Reports: depression, suicidal ideation, hopelessness, irritability Mental Status Exam Patient orientation: Yes Person, Yes Time, Yes Place Level of alertness: Alert Patient appearance: Unkempt Behavior: anxious Eye contact: Maintains Eye Contact Mood description: Depressed, Anxious Affect description: congruent with mood, constricted, dysphoric Speech pattern: Normal rate, Normal rhythm, Normal tone Speech volume: Normal Thought process: Linear, Goal Oriented Thought content: Yes Suicidal ideation Perceptual disturbances: No Auditory hallucinations, No Visual hallucinations Attention span: Capable of Focused Attention Memory description: Grossly Intact Patient reliability: Reliable Historian Intelligence estimate: Average Judgment: Limited Exam - HEENT Head exam IM: Present: atraumatic Eye exam IM: Present: normal appearance ENT exam IM: Present: mucous membranes moist, normal exam - Neurological Neurological exam IM: Present: alert, CN II-XII intact, normal gait, oriented X3 , reflexes normal. Absent: motor sensory deficit - Respiratory Respiratory exam IM: Absent: respiratory distress, rhonchi, wheezes, tachypnea - GI/Abdominal GI/Abdominal exam IM: Present: normal bowel sounds, soft. Absent: tenderness - Extremities Extremities exam IM: Present: normal inspection - Skin Skin exam IM: Present: normal color Results - Vital Signs Vital signs: Temp Pulse Resp BP 97.5 F L 73 16 132/94 09/08/16 09:00 09/08/16 09:00 09/08/16 09:00 09/08/16 09:00 Assessment and Plan (1) MDD (major depressive disorder), recurrent severe, without psychosis Current visit: No Status: Acute Plan: Admit inpatient for safety and stabilization, Close observation, Suicide Precautions per unit protocol, Encourage participation in unit milieu, Group Therapy, Monitor sleep, Monitor appetite Additional Plan: We will initiate the patient on Cymbalta 60 mg daily to help with his depression and chronic pain Risks, benefits, side effects, alternatives discussed w/pt: Yes Patient agreeable to treatment: Yes Plans for Post Hospital Care: Home Estimated Length of Stay (Days): 3
[2016-09-08] MEDS: traZODone 50 MG TABLET PO PRN (20:51)
[2016-09-09] MEDS: *HR* OxyCODONE/APAP 7.5/325 TABLET PO PRN ×4 (03:38→22:01)
[2016-09-09] MEDS: clonazePAM 0.5 MG TABLET PO SCH ×2 (09:26→22:00)
[2016-09-09] MEDS: Nicotine 21 MG PATCH.TD24 TD SCH (09:27)
--- NOTE | 2016-09-09 12:59 | Psychiatry Progress Note ---
Date of Encounter: 09/09/16 Time of Encounter: 12:30 Subjective Interval history: Patient is seen for follow-up. Reports poor sleep, difficulty falling asleep, frequent urination for the last 2 or 3 months. He denies suicidal ideation, continued to be occupied with his back pain and treatment options. He is tolerating Cymbalta and denies any side effects. I discussed with him treatment trial with Depakote at bedtime he is agreeable. Review of Systems Psychiatric: Reports: depression, suicidal ideation, hopelessness, irritability Objective: Exam Patient orientation: Yes Person, Yes Time, Yes Place Level of alertness: Alert Patient appearance: Appropriate, Well Groomed, Obese Behavior: calm, cooperative, distractible Psychomotor activity: Normal Eye contact: Maintains Eye Contact Mood description: Anxious Affect description: congruent with mood, constricted Speech pattern: Normal rate, Normal rhythm, Normal tone Speech volume: Normal Thought process: Linear, Goal Oriented Thought content: No Suicidal ideation, No Homicidal ideation, No Overt delusions Perceptual disturbances: No Auditory hallucinations, No Visual hallucinations Judgment: Fair Insight: Partial Results - Vital Signs Vital Signs: Temp Pulse Resp BP 97.1 F L 70 16 115/80 09/09/16 09:00 09/09/16 09:00 09/09/16 09:00 09/09/16 09:00 Assessment and Plan (1) Major depressive disorder, recurrent Current visit: Yes Status: Acute Plan: Continue hospitalization, Close observation, Suicide Precautions per unit protocol, Encourage participation in unit milieu, Group Therapy, Monitor sleep, Monitor appetite Risks, benefits, side effects, alternatives discussed w/pt: Yes Patient agreeable to treatment: Yes Qualifiers: Active/Remission status: currently active Major depression episode severity : severe Psychotic features: without psychotic features Qualified Code(s): F33.2 - Major depressive disorder, recurrent severe without psychotic features Consult Discharge Plan - Plan Referrals: NO,PCP [Primary Care Provider] -
[2016-09-09] MEDS ORDERED: Divalproex (24 HR) 500 MG TABLET PO SCH (21:00)
[2016-09-10] MEDS: *HR* OxyCODONE/APAP 7.5/325 TABLET PO PRN ×3 (03:31→16:26)
[2016-09-10] MEDS: Nicotine 21 MG PATCH.TD24 TD SCH (08:34)
[2016-09-10] MEDS: clonazePAM 0.5 MG TABLET PO SCH (08:35)
[2016-09-10 09:42] VITALS: BP 132/90
--- NOTE | 2016-09-10 13:13 | Discharge Summary ---
Date of Encounter: 09/10/16 Time of Encounter: 13:09 Diagnosis - Discharge Diagnosis (1) Major depressive disorder, recurrent Status: Acute Qualifiers: Active/Remission status: currently active Major depression episode severity : severe Psychotic features: without psychotic features Qualified Code(s): F33.2 - Major depressive disorder, recurrent severe without psychotic features Medications - Discharge Medications Prescriptions: Divalproex (24 HR) [Depakote ER (24 HR)] 500 mg PO HS #30 tab.er.24h DULoxetine [Cymbalta] 60 mg PO DAILY #60 capsule. Lisinopril/Hydrochlorothiazide [Zestoretic 20-25 mg Tablet] 1 tab PO DAILY 11/23 [History] Oxycodone HCl/Acetaminophen [Percocet 7.5-325 mg Tablet] 1 tab PO Q6H PRN [History] Acetaminophen [Tylenol] 650 mg PO Q6HR PRN #0 tablet 09/07/16 [Rx] Atenolol [Tenormin] 50 mg PO DAILY 09/07/16 [History] HYDROcodone/Acet 5/325 mg [[place]ac 5-325 mg] 1 tab PO Q6HR PRN #0 tablet 09/07/16 [Rx] Heparin 5,000 unit SQ Q12HCO vial 09/07/16 [Rx] Naloxone [Narcan] 0.4 mg IVP Q2MIN PRN #0 inj 09/07/16 [Rx] Nicotine Patch [Nicoderm] 21 mg TD DAILY patch.td24 09/07/16 [Rx] clonazePAM [Klonopin] 0.5 mg PO BID 09/07/16 [History] DULoxetine [Cymbalta] 60 mg PO DAILY #60 capsule. 09/10/16 [Rx] Divalproex (24 HR) [Depakote ER (24 HR)] 500 mg PO HS #30 tab.er.24h 09/10/16 [ Rx] Allergies Iodinated Contrast- Oral and IV Dye [Iodinated Contrast Media - IV Dye] Allergy (Verified 09/11/15 20:47) Anaphylaxis tramadol [From Ultram] Allergy (Verified 09/11/15 20:47) Seizure Provider Date of admission: 09/07/16 15:33 Primary care physician: PCP NO Discharging clinician: Jhonny Harrell Assessment and Plan - Patient/Caregiver Discharge Instructions Activity: resume usual activities as tolerated Diet: regular diet - Follow up Plan Follow up with: Jacy Guo [facility] [place] - 09/11/16 12:30 pm (The above appointment is with Deepti Robles to establish your individual outpatient mental health counseling services. Deepti will be able to refer you to case management , marital counseling, groups and/or psychiatric medication managment within the clinic as well. When you come to your first appointment, you will have an orientation to the agency and you will meet with a counselor. Please bring the following with you to your first visit to the clinic: 1) proof of household income (two consecutive pay stubs, social security award letter, bank statement , statement letter from [facility], child support statement, IRS 1040 or W2 form, or a statement from the person who financially supports you stating they help provide for your basic needs), 2) proof of residency (drivers license, a piece of mail showing your address, a statement from person you live with verifying you live at their address), 3) your social security card, 4) photo ID, 5) your insurance card (if you have commercial insurance you must call to obtain a prior authorization number before you arrive to your first appointment) and 6) if you do not have insurance but have applied for Medicaid, please bring verification you have applied. This is the first available appointment. You may contact the office regularly to check for cancellations that may allow you to be seen sooner. ) Yokasta Negro, SULY [Advanced Practice Nurse] - 10/03/16 1:00 pm (The above appointment is with Yokasta Negro, primary care provider.) Functional capacity at discharge: independent ambulation Overall status at discharge: Stable Disposition: Home, Self-Care Hospital Course Hospital course: Mr. Epps is a 35 year old male admitted for depression and suicidal ideation. For details of the admission please see H&P On the unit patient was started on Cymbalta 60 mg daily, later on Depakote 500 mg was added at bedtime to him to help patient with sleep and some as a mood stabilizer. Patient responded positively to medication changes, she reported improved sleep, not depressed, denies suicidal ideation and his chronic pain was improved. He participated in groups actively and was compliant with medication. Discharge plans were completed by long term care social worker including insurance issues. On discharge patient was medically stable, nonsuicidal and future oriented. - Time Spent with Patient Total time spent providing and/or coordinating discharge services: Less than 30 minutes Quality - Multiple Antipsychotics Patient discharged on 2 or more antipsychotic medications: No Procedures - Procedures Procedures: Medication Management, Crisis Stabilization, Supportive Therapy, Group Therapy, Psychoeducational Therapy Mental Status Exam - Mental Status Exam Patient orientation: Yes Person, Yes Time, Yes Place Level of alertness: Alert Patient appearance: Appropriate, Well Groomed, Obese Behavior: calm, cooperative Psychomotor activity: Normal Eye contact: Maintains Eye Contact Mood description: Euthymic/stable Affect description: congruent with mood, full range Speech pattern: Normal rate, Normal rhythm, Normal tone Speech Volume: Normal Thought process: Linear, Goal Oriented Thought Content: No Suicidal ideation, No Homicidal ideation, No Overt delusions Perceptual Disturbances: No Auditory hallucinations, No Visual hallucinations Judgment: Limited Insight: Partial
== END 2016-09-10 19:20 | disposition home or self-care (01) | DRG 751 ==
LOC: 1ANU 15:33 → SUATTDRO 15:33
PROVIDERS: ADMIT Psychiatry & Neurology Psychiatry; ATTEND Psychiatry & Neurology Psychiatry

== ENCOUNTER 2021-11-13 01:04 | Inpatient (IN) ==
[2021-11-13] MEDS ORDERED: Naloxone 0.4 MG/ML INJ IVP PRN (10:50)
[2021-11-13] MEDS ORDERED: Ondansetron 4 MG/2 ML VIAL IVP PRN (10:50)
[2021-11-13 11:49] LABS: ABG Base Excess 5 mEq/L (-2 to 3); ABG HCO3 35 mEq/L (21-27); ABG Oxygen Saturation 95 % (95-98); ABG PCO2 73 mmHg (35-45); ABG PH 7.29 pH Units (7.32-7.45); ABG PO2 89 mmHg (85-104); ABG TCO2 37 mEq/L (20-26); Blood Gas Modality NIV
[2021-11-13 12:46] LABS: Adenovirus Not Detected (Not Detect); Coronavirus 229E Not Detected (Not Detect); Coronavirus HKU1 Not Detected (Not Detect); Coronavirus NL63 Not Detected (Not Detect); Coronavirus OC43 Not Detected (Not Detect); Human Metapneumovirus Not Detected (Not Detect); SARS-CoV-2 Not Detected (Not Detect)
[2021-11-13 12:47] LABS: Bordetella Pertussis Not Detected (Not Detect); Chlamydophila pneumoniae Not Detected (Not Detect); Human Rhinovirus/Enterovirus Not Detected (Not Detect); Influenza A Subtype 2009 H1 Not Detected (Not Detect); Influenza B Not Detected (Not Detect); Mycoplasma pneumoniae Not Detected (Not Detect); Parainfluenza Virus 1 Not Detected (Not Detect); Parainfluenza Virus 2 Not Detected (Not Detect); Parainfluenza Virus 3 Not Detected (Not Detect); Parainfluenza Virus 4 Not Detected (Not Detect); Respiratory Syncytial Virus Not Detected (Not Detect)
[2021-11-13 14:21] LABS: Basophils % 0.1 %; Hematocrit 45.3 % (37.5-50.1); Hemoglobin 14.8 g/dL (12.9-16.9); Immature Granulocytes % 0.8 % (0-4); Lymphocytes # 1.1 K/mcL (0.6-4.6); Lymphocytes % 7.1 %; Mean Corpuscular HGB Conc 32.7 g/dL (31.6-35.5); Mean Corpuscular Hemoglobin 32.2 pg (28.0-33.3); Mean Corpuscular Volume 98.7 fL (83.0-100.0); Mean Platelet Volume 12.7 fL (9.4-12.4); Monocytes # 0.3 K/mcL (0.0-1.3); Neutrophils # 14.1 K/mcL (1.6-8.9); Platelet Count 140 K/mcL (140-400); Red Blood Count 4.59 M/mcL (4.19-5.50); White Blood Count 15.7 K/mcL (4.3-11.1)
[2021-11-13 14:33] LABS: BUN/Creatinine Ratio 27 (6-26); Blood Urea Nitrogen 22 mg/dL (6-20); Calcium 8.7 mg/dL (8.6-10.3); Carbon Dioxide 33 mEq/L (23-29); Chloride 102 mEq/L (98-107); Glucose 138 mg/dL (70-105); Osmolality,Calculated 296 (280-300); Potassium 4.5 mEq/L (3.5-5.1); Sodium 140 mEq/L (136-145)
[2021-11-13 14:35] LABS: Magnesium 2.2 mg/dL (1.6-2.6); Phosphorous 4.8 mg/dL (2.7-4.5); Troponin I 0.03 ng/mL (< 0.04)
[2021-11-13 14:36] LABS: INR 1.1; Prothrombin Time 12.4 Seconds (9.4-12.1)
[2021-11-13 16:02] LABS: Amphetamine Screen,Urine Negative ng/mL (Cutoff=1000); Barbiturate Screen,Urine Negative ng/mL (Cutoff=200); Benzodiazepines Screen,Urine Negative ng/mL (Cutoff=200); Cannabinoid Screen,Urine Negative ng/mL (Cutoff = 50); Cocaine Screen,Urine Negative ng/mL (Cutoff= 300); Opiate Screen,Urine Negative ng/mL (Cutoff=300); Phencyclidine Screen,Urine Negative ng/mL (Cutoff=25)
[2021-11-13] MEDS: Piperacillin/Tazobactam 3.375 GM in 0.9 % Sodium Chloride Mini Bag 100 ML IVPB SCH (16:12)
[2021-11-13] MEDS: Acetaminophen 325 MG TABLET PO PRN (16:15)
[2021-11-13] MEDS ORDERED: *HR* Heparin 5,000 UNIT/ML VIAL IVP PRN ×2 (16:31)
[2021-11-13] MEDS ORDERED: *HR* Heparin 5,000 UNIT/ML VIAL IVP ONE (16:31)
[2021-11-13 17:53] LABS: Heparin anti-factor XA UFH < 0.04 IU/mL (0.30-0.70)
[2021-11-13 17:54] LABS: INR 1.1; Prothrombin Time 12.1 Seconds (9.4-12.1)
[2021-11-13] MEDS ORDERED: Furosemide 20 MG/2 ML VIAL IVP ONE (19:47)
[2021-11-13] MEDS: Heparin 25,000UNIT/250ML 1/2NS 25,000 UNIT/250 ML IV.SOLN IVC SCH (19:49)
[2021-11-13] MEDS ORDERED: Furosemide 40 MG/4 ML VIAL ONE (19:49)
[2021-11-13] MEDS: Furosemide 40 MG/4 ML VIAL IVP SCH (19:57)
[2021-11-13] MEDS ORDERED: carvediloL 25 MG TABLET ONE (20:18)
[2021-11-13] MEDS: carvediloL 25 MG TABLET PO SCH (20:25)
[2021-11-14 03:32] LABS: VBG HCO3 34 mEq/L (21-27); VBG PCO2 68 mmHg (41-51); VBG PH 7.31 pH Units (7.32-7.42); VBG PO2 203 mmHg (25-50)
[2021-11-14 03:40] LABS: Hemoglobin 13.8 g/dL (12.9-16.9); Mean Corpuscular HGB Conc 32.1 g/dL (31.6-35.5); Mean Corpuscular Volume 99.8 fL (83.0-100.0); Mean Platelet Volume 12.8 fL (9.4-12.4); Platelet Count 135 K/mcL (140-400); Red Blood Count 4.31 M/mcL (4.19-5.50); White Blood Count 13.1 K/mcL (4.3-11.1)
[2021-11-14] MEDS: Piperacillin/Tazobactam 3.375 GM in 0.9 % Sodium Chloride Mini Bag 100 ML IVPB SCH ×3 (03:47→20:15)
[2021-11-14 03:48] LABS: D-Dimer 1243 ng/mLFEU (0-500)
[2021-11-14 03:49] LABS: Heparin anti-factor XA UFH < 0.04 IU/mL (0.30-0.70)
[2021-11-14 04:02] LABS: BUN/Creatinine Ratio 29 (6-26); Blood Urea Nitrogen 25 mg/dL (6-20); Calcium 8.7 mg/dL (8.6-10.3); Carbon Dioxide 35 mEq/L (23-29); Chloride 101 mEq/L (98-107); Glucose 104 mg/dL (70-105); Magnesium 2.3 mg/dL (1.6-2.6); Osmolality,Calculated 295 (280-300); Potassium 4.3 mEq/L (3.5-5.1); Sodium 140 mEq/L (136-145)
[2021-11-14] MEDS: Isosorbide MONOnitrate (24 HR) 60 MG TAB.ER.24H PO SCH (08:08)
[2021-11-14] MEDS: lisinopriL 20 MG TABLET PO SCH (08:08)
[2021-11-14] MEDS: carvediloL 25 MG TABLET PO SCH ×2 (08:08→16:47)
[2021-11-14] MEDS: Furosemide 40 MG/4 ML VIAL IVP SCH (08:08)
[2021-11-14] MEDS: BuPROPion XL (24 HR) 150 MG TABLET PO SCH (08:08)
[2021-11-14] MEDS: Ipratropium/Albuterol Neb 3 ML IH SCH ×3 (09:15→22:00)
[2021-11-14] MEDS: Nicotine 21 MG PATCH.TD24 TD SCH (14:55)
[2021-11-14] MEDS: *HR* Buprenorphine HCl 8 MG TAB.SUBL SL SCH (14:55)
[2021-11-14] MEDS: predniSONE 20 MG TABLET PO SCH (14:59)
[2021-11-14] MEDS: Acetaminophen 325 MG TABLET PO PRN (14:59)
[2021-11-14] MEDS: Heparin 25,000UNIT/250ML 1/2NS 25,000 UNIT/250 ML IV.SOLN IVC SCH (16:04)
[2021-11-15] MEDS: Heparin 25,000UNIT/250ML 1/2NS 25,000 UNIT/250 ML IV.SOLN IVC SCH (00:36)
[2021-11-15] MEDS: Acetaminophen 325 MG TABLET PO PRN ×2 (02:16→13:06)
[2021-11-15 03:03] LABS: Immature Granulocytes % 0.8 % (0-4); Monocytes % 4.8 %
[2021-11-15 03:06] LABS: Basophils % 0.1 %; Hematocrit 41.9 % (37.5-50.1); Hemoglobin 13.1 g/dL (12.9-16.9); Lymphocytes # 1.9 K/mcL (0.6-4.6); Lymphocytes % 19.3 %; Mean Corpuscular HGB Conc 31.3 g/dL (31.6-35.5); Mean Corpuscular Hemoglobin 31.6 pg (28.0-33.3); Mean Platelet Volume 13.4 fL (9.4-12.4); Monocytes # 0.5 K/mcL (0.0-1.3); Neutrophils # 7.5 K/mcL (1.6-8.9); Platelet Count 106 K/mcL (140-400); Red Blood Count 4.15 M/mcL (4.19-5.50); Red Cell Distribution Width 12.8 % (11.5-14.5)
[2021-11-15 03:22] LABS: BUN/Creatinine Ratio 29 (6-26); Blood Urea Nitrogen 24 mg/dL (6-20); Calcium 8.5 mg/dL (8.6-10.3); Carbon Dioxide 37 mEq/L (23-29); Chloride 101 mEq/L (98-107); Glucose 131 mg/dL (70-105); Magnesium 2.3 mg/dL (1.6-2.6); Osmolality,Calculated 296 (280-300); Potassium 4.3 mEq/L (3.5-5.1); Sodium 140 mEq/L (136-145)
[2021-11-15] MEDS: Ipratropium/Albuterol Neb 3 ML IH SCH ×5 (04:11→22:57)
[2021-11-15] MEDS: Piperacillin/Tazobactam 3.375 GM in 0.9 % Sodium Chloride Mini Bag 100 ML IVPB SCH ×3 (04:15→19:50)
[2021-11-15] MEDS: BuPROPion XL (24 HR) 150 MG TABLET PO SCH (08:16)
[2021-11-15] MEDS: *HR* Buprenorphine HCl 8 MG TAB.SUBL SL SCH (08:16)
[2021-11-15] MEDS: lisinopriL 20 MG TABLET PO SCH (08:16)
[2021-11-15] MEDS: Isosorbide MONOnitrate (24 HR) 60 MG TAB.ER.24H PO SCH (08:17)
[2021-11-15] MEDS: predniSONE 20 MG TABLET PO SCH (08:17)
[2021-11-15] MEDS: Nicotine 21 MG PATCH.TD24 TD SCH (08:18)
[2021-11-15] MEDS: carvediloL 25 MG TABLET PO SCH ×2 (08:18→16:54)
[2021-11-15] MEDS: Furosemide 40 MG/4 ML VIAL IVP SCH (10:32)
[2021-11-15] MEDS: *HR* Heparin 5,000 UNIT/ML VIAL SQ SCH (16:54)
[2021-11-15] MEDS: acetaZOLAMIDE 250 MG TABLET PO SCH (16:57)
[2021-11-15] MEDS: Aspirin Enteric Coated 81 MG Tablet PO SCH (16:57)
[2021-11-16 02:57] LABS: Red Cell Distribution Width 12.5 % (11.5-14.5)
[2021-11-16 02:59] LABS: Hematocrit 41.7 % (37.5-50.1); Hemoglobin 13.2 g/dL (12.9-16.9); Immature Platelets 17.5 % (1.1-6.1); Mean Corpuscular HGB Conc 31.7 g/dL (31.6-35.5); Mean Corpuscular Hemoglobin 31.6 pg (28.0-33.3); Mean Corpuscular Volume 99.8 fL (83.0-100.0); Mean Platelet Volume 13.5 fL (9.4-12.4); Red Blood Count 4.18 M/mcL (4.19-5.50); White Blood Count 9.6 K/mcL (4.3-11.1)
[2021-11-16 03:19] LABS: BUN/Creatinine Ratio 22 (6-26); Blood Urea Nitrogen 19 mg/dL (6-20); Calcium 8.9 mg/dL (8.6-10.3); Carbon Dioxide 38 mEq/L (23-29); Chloride 101 mEq/L (98-107); Glucose 114 mg/dL (70-105); Osmolality,Calculated 297 (280-300); Potassium 3.7 mEq/L (3.5-5.1); Sodium 142 mEq/L (136-145)
[2021-11-16] MEDS: Ipratropium/Albuterol Neb 3 ML IH SCH ×2 (04:27→09:12)
[2021-11-16] MEDS: Piperacillin/Tazobactam 3.375 GM in 0.9 % Sodium Chloride Mini Bag 100 ML IVPB SCH (04:49)
[2021-11-16] MEDS: *HR* Heparin 5,000 UNIT/ML VIAL SQ SCH (04:50)
[2021-11-16] MEDS: *HR* Buprenorphine HCl 8 MG TAB.SUBL SL SCH (08:38)
[2021-11-16] MEDS: acetaZOLAMIDE 250 MG TABLET PO SCH (08:39)
[2021-11-16] MEDS: Aspirin Enteric Coated 81 MG Tablet PO SCH (08:39)
[2021-11-16] MEDS: carvediloL 25 MG TABLET PO SCH (08:39)
[2021-11-16] MEDS: predniSONE 20 MG TABLET PO SCH (08:39)
[2021-11-16] MEDS: lisinopriL 20 MG TABLET PO SCH (08:39)
[2021-11-16] MEDS: Isosorbide MONOnitrate (24 HR) 60 MG TAB.ER.24H PO SCH (08:39)
[2021-11-16] MEDS: Nicotine 21 MG PATCH.TD24 TD SCH (08:40)
[2021-11-16] MEDS: BuPROPion XL (24 HR) 150 MG TABLET PO SCH (08:40)
[2021-11-16] MEDS ORDERED: Furosemide 40 MG/4 ML VIAL IVP SCH (09:00)
[2021-11-16] MEDS ORDERED: Spironolactone 25 MG TABLET PO SCH (09:00)
[2021-11-16 11:29] VITALS: O2SAT 95
[2021-11-16 11:48] VITALS: BP 162/91; PULSE 78; TEMP 98.4
== END 2021-11-16 13:25 | disposition home or self-care (01) | DRG 720 ==
LOC: 2NENU → SUATTDRO 10:14
PROVIDERS: ADMIT Pharmacist; ATTEND Internal Medicine